=== PATIENT | female | born 1980 | race Hispanic/Latino ===

== ENCOUNTER → 2024-01-13 | Outpatient (CLI) | payer BC | END | disposition home or self-care (01) | LOC: RAH 12:58 | PROVIDERS: ATTEND Urology | DX: K42.9 Umbilical hernia without obstruction or gangrene (principal); N32.89 Other specified disorders of bladder; M47.815 Spondylosis without myelopathy or radiculopathy, thoracolumbar region; N20.0 Calculus of kidney; Z90.49 Acquired absence of other specified parts of digestive tract | CPT/HCPCS: 74176 ==